=== PATIENT | female | born 1985 | race Caucasian/White ===

== ENCOUNTER 2020-08-19 19:40 | Inpatient (IN) | payer MEDICAID ==
[~2020-08-19] VITALS: Ht 160 cm; Wt 135.7 kg
[~2020-08-19 19:40] MED LIST: GUAI1TAB PO
[2020-08-19] MEDS ORDERED: SODIUM CHLORIDE FLUSH 10ML SYR IVF ONE (20:00)
[2020-08-19] MEDS ORDERED: methylPREDNISolone SOD SUCC 125 MG/2 ML IV ONE (20:00)
[2020-08-19] MEDS ORDERED: ALBUTEROL/IPRATROPIUM 2.5MG/0.5MG, 3 ML ONE ×2 (20:08→21:11)
[2020-08-19] MEDS ORDERED: methylPREDNISolone SOD SUCC 125 MG/2 ML ONE (20:10)
[2020-08-19] MEDS: ALBUTEROL/IPRATROPIUM 2.5MG/0.5MG, 3 ML NPPB SCH ×2 (20:27→21:12)
--- NOTE | 2020-08-19 20:33 | NUR ---
patient resting in bed, SOB with use of accessory muscles. call hayes in reach. safety maintained. nebulizer given. lab at bedside and IV started by this RN and additional labs obtained. patient aware of plan. solumedrol administered. will continue to monitor.
[2020-08-19 20:39] LABS: BASOPHILS % (AUTO) 1 % (0-1); EOSINOPHILS % (AUTO) 6 % (1-7); LYMPHOCYTES % (AUTO) 10 % (22-44); MEAN CORPUSCULAR HEMOGLOBIN 30.2 pg (27.0-34.8); MEAN CORPUSCULAR HGB CONC 33.9 g/dL (32.4-35.8); MEAN PLATELET VOLUME 8.8 fL (7.4-10.4); MONOCYTES % (AUTO) 5 % (2-9); NEUTROPHILS % (AUTO) 79 % (42-75); PLATELET COUNT 301 x10^3/uL (130-400); RED BLOOD COUNT 4.97 x10^6/uL (3.82-5.3); RED CELL DISTRIBUTION WIDTH 13.8 % (9.6-15.2)
[2020-08-19 20:43] LABS: MD NO
[2020-08-19 20:48] LABS: ALBUMIN 4.1 g/dL (3.4-5.0); ANION GAP 7 mmol/L (5-15); CALCIUM 8.9 mg/dL (8.5-10.1); CHLORIDE 104 mmol/L (98-107); CREATININE 0.78 mg/dL (0.55-1.02)
[2020-08-19 20:53] LABS: TROPONIN I < 0.015 ng/mL (0.000-0.045)
--- NOTE | 2020-08-19 21:12 | NUR ---
patient remains wheezy throughout all lung bases with decreased accessory effort than on arrival to ER. 2nd duoneb administered
[2020-08-19] MEDS ORDERED: OMNIPAQUE 350 MG/ML, 75ML BOTTLE ONE (21:44)
--- NOTE | 2020-08-19 21:45 | NUR ---
patient going to CT
[2020-08-19] MEDS ORDERED: CEFTRIAXONE PMX 1GM/50ML 50 ML IVPB ONE (22:30)
[2020-08-19] MEDS ORDERED: AZITHROMYCIN 500 MG in SODIUM CHLORIDE 0.9% 250 ML IVPB ONE (22:30)
--- NOTE | 2020-08-19 22:50 | NUR ---
patient resting in bed in NAD. safety maintained. will continue to monitor. safety maintained. remains on 2L via NC
[2020-08-19] MEDS ORDERED: POLYETHYLENE GLYCOL 17 GM PACKET PO PRN (23:00)
[2020-08-19] MEDS ORDERED: BISACODYL 10 MG SUPP PR PRN (23:00)
[2020-08-19] MEDS ORDERED: ONDANSETRON ODT 4 MG PO PRN (23:00)
[2020-08-19] MEDS: CEFTRIAXONE PMX 1GM/50ML 50 ML IV SCH (23:00)
[2020-08-19] MEDS ORDERED: SODIUM CHLORIDE FLUSH 10ML SYR IVF PRN (23:00)
[2020-08-19] MEDS ORDERED: CEFTRIAXONE PMX 1GM/50ML 50 ML ONE (23:07)
[2020-08-19] MEDS ORDERED: ASCORBIC ACID 500 MG TABLET ONE (23:07)
[2020-08-19] MEDS ORDERED: HEPARIN 5,000 UNITS/ML, 1ML ONE (23:07)
[2020-08-19] MEDS: SODIUM CHLORIDE 0.9% 1,000 ML IV SCH ×2 (23:15→23:26)
[2020-08-19] MEDS: HEPARIN 5,000 UNITS/ML, 1ML SQ SCH (23:21)
[2020-08-19] MEDS: ASCORBIC ACID 500 MG TABLET PO SCH (23:22)
--- NOTE | 2020-08-19 23:33 | NUR ---
tila swabbed and walked to lab by this RN Addendum: 08/19/20 at 2336 by COURTNEY PAPR and appropriate PPE worn
[2020-08-19 23:39] LABS: D-DIMER 0.24 ug/mlFEU (0.00-0.52)
--- NOTE | 2020-08-19 23:41 | NUR ---
report given to Tasha PETTY
[2020-08-19 23:54] VITALS: BP 158/105
[2020-08-20 00:23] VITALS: BP 146/97
[2020-08-20] MEDS ORDERED: hydrALAzine 20 MG/ML, 1ML IV PRN (00:30)
[2020-08-20] MEDS: AZITHROMYCIN 500 MG in SODIUM CHLORIDE 0.9% 250 ML IV SCH (00:51)
[2020-08-20 02:36] VITALS: BP 163/98
[2020-08-20] MEDS: ACETAMINOPHEN 325 MG TABLET PO PRN ×4 (03:12→23:32)
[2020-08-20] MEDS: GUAIFENESIN/DM 200-20MG, 10ML UDC PO PRN ×3 (03:13→23:32)
[2020-08-20] MEDS: ALBUTEROL HFA 90 MCG/SPRAY INH SCH ×6 (03:32→22:59)
[2020-08-20 03:54] LABS: BASOPHILS % (AUTO) 0 % (0-1); EOSINOPHILS % (AUTO) 0 % (1-7); LYMPHOCYTES % (AUTO) 4 % (22-44); MEAN CORPUSCULAR HEMOGLOBIN 30.1 pg (27.0-34.8); MEAN CORPUSCULAR HGB CONC 33.7 g/dL (32.4-35.8); MEAN PLATELET VOLUME 9.2 fL (7.4-10.4); MONOCYTES % (AUTO) 1 % (2-9); NEUTROPHILS % (AUTO) 95 % (42-75); PLATELET COUNT 301 x10^3/uL (130-400); RED BLOOD COUNT 5.08 x10^6/uL (3.82-5.3)
[2020-08-20 03:56] LABS: MD NO
[2020-08-20 04:09] LABS: CHLORIDE 106 mmol/L (98-107)
[2020-08-20 04:13] LABS: ANION GAP 9 mmol/L (5-15); CREATININE 0.79 mg/dL (0.55-1.02)
[2020-08-20 04:26] VITALS: BP 138/81
[2020-08-20 07:47] VITALS: BP 184/81
[2020-08-20] MEDS: DEXAMETHASONE 4 MG/ML, 1ML IVPush SCH (09:26)
[2020-08-20] MEDS: HEPARIN 5,000 UNITS/ML, 1ML SQ SCH ×3 (09:26→23:32)
[2020-08-20] MEDS: CHOLECALCIFEROL 5,000u TAB PO SCH (09:27)
[2020-08-20] MEDS: ASCORBIC ACID 500 MG TABLET PO SCH ×2 (09:27→21:35)
[2020-08-20] MEDS: SENNA/DOCUSATE TABLET PO SCH (09:27)
[2020-08-20] MEDS: ZINC SULFATE 220 MG CAPSULE PO SCH (09:28)
[2020-08-20] MEDS: SODIUM CHLORIDE 0.9% 1,000 ML IV SCH ×2 (11:27→17:59)
[2020-08-20 12:13] VITALS: BP 151/97
[2020-08-20 19:56] VITALS: BP 150/96
[2020-08-20] MEDS: CEFTRIAXONE PMX 1GM/50ML 50 ML IV SCH (23:32)
[2020-08-21 00:49] VITALS: BP 140/86
[2020-08-21] MEDS: AZITHROMYCIN 500 MG in SODIUM CHLORIDE 0.9% 250 ML IV SCH (01:11)
[2020-08-21] MEDS: ALBUTEROL HFA 90 MCG/SPRAY INH SCH ×6 (02:54→23:00)
[2020-08-21 06:04] LABS: BASOPHILS % (AUTO) 0 % (0-1); EOSINOPHILS % (AUTO) 0 % (1-7); LYMPHOCYTES % (AUTO) 16 % (22-44); MEAN CORPUSCULAR HEMOGLOBIN 29.6 pg (27.0-34.8); MEAN CORPUSCULAR HGB CONC 33.2 g/dL (32.4-35.8); MEAN PLATELET VOLUME 9.2 fL (7.4-10.4); MONOCYTES % (AUTO) 6 % (2-9); NEUTROPHILS % (AUTO) 77 % (42-75); PLATELET COUNT 282 x10^3/uL (130-400); RED BLOOD COUNT 4.35 x10^6/uL (3.82-5.3); RED CELL DISTRIBUTION WIDTH 13.9 % (9.6-15.2)
[2020-08-21 06:10] LABS: MD NO
[2020-08-21 06:15] LABS: ALBUMIN 3.3 g/dL (3.4-5.0); ANION GAP 8 mmol/L (5-15); CALCIUM 8.3 mg/dL (8.5-10.1); CHLORIDE 111 mmol/L (98-107)
[2020-08-21 06:17] LABS: CREATININE 0.57 mg/dL (0.55-1.02)
[2020-08-21 06:50] VITALS: BP 101/59
[2020-08-21] MEDS: GUAIFENESIN/DM 200-20MG, 10ML UDC PO PRN (08:47)
[2020-08-21] MEDS: ASCORBIC ACID 500 MG TABLET PO SCH ×2 (08:47→19:46)
[2020-08-21] MEDS: DEXAMETHASONE 4 MG/ML, 1ML IVPush SCH (08:47)
[2020-08-21] MEDS: ACETAMINOPHEN 325 MG TABLET PO PRN (08:47)
[2020-08-21] MEDS: HEPARIN 5,000 UNITS/ML, 1ML SQ SCH ×2 (08:48→16:33)
[2020-08-21] MEDS: CHOLECALCIFEROL 5,000u TAB PO SCH (08:48)
[2020-08-21] MEDS: SODIUM CHLORIDE 0.9% 1,000 ML IV SCH ×2 (08:48→22:49)
[2020-08-21] MEDS: ZINC SULFATE 220 MG CAPSULE PO SCH (08:48)
[2020-08-21] MEDS: SENNA/DOCUSATE TABLET PO SCH (08:53)
[2020-08-21 12:22] VITALS: BP 144/92
[2020-08-21 18:50] VITALS: BP 142/79
[2020-08-21 19:15] VITALS: BP 154/83
[2020-08-21] MEDS: CEFTRIAXONE PMX 1GM/50ML 50 ML IV SCH (22:49)
[2020-08-22] MEDS: AZITHROMYCIN 500 MG in SODIUM CHLORIDE 0.9% 250 ML IV SCH (00:42)
[2020-08-22] MEDS: HEPARIN 5,000 UNITS/ML, 1ML SQ SCH ×2 (00:42→08:01)
[2020-08-22 00:45] VITALS: BP 153/91
[2020-08-22] MEDS: ACETAMINOPHEN 325 MG TABLET PO PRN ×2 (00:53→06:20)
[2020-08-22] MEDS: GUAIFENESIN/DM 200-20MG, 10ML UDC PO PRN (00:53)
[2020-08-22] MEDS: ALBUTEROL HFA 90 MCG/SPRAY INH SCH ×2 (03:27→07:15)
[2020-08-22 07:16] VITALS: BP 170/97
[2020-08-22] MEDS ORDERED: ALBU18HF INH (07:42)
[2020-08-22] MEDS ORDERED: DEXA1TAB5 PO (07:42)
[2020-08-22] MEDS: CHOLECALCIFEROL 5,000u TAB PO SCH (08:01)
[2020-08-22] MEDS: ZINC SULFATE 220 MG CAPSULE PO SCH (08:01)
[2020-08-22] MEDS: SENNA/DOCUSATE TABLET PO SCH (08:01)
[2020-08-22] MEDS: ASCORBIC ACID 500 MG TABLET PO SCH (08:01)
[2020-08-22] MEDS ORDERED: DEXAMETHASONE 1 MG TABLET PO SCH (09:00)
== END 2020-08-22 10:08 | disposition home or self-care (01) | DRG 871 ==
LOC: ED 23:07 → EDIP 23:36 → 3N 23:51
PROVIDERS: ADMIT Internal Medicine; ATTEND Internal Medicine
DX: A41.89 Other specified sepsis (principal); J12.82 Pneumonia due to coronavirus disease 2019; J96.01 Acute respiratory failure with hypoxia; U07.1 COVID-19; Z68.43 Body mass index [BMI] 50.0-59.9, adult; E66.01 Morbid (severe) obesity due to excess calories; Z87.891 Personal history of nicotine dependence; Z90.721 Acquired absence of ovaries, unilateral
CPT/HCPCS: 36415; 71045; 71275; 80048; 80069; 82040; 82728; 83605; 83615; 83735; 83880; 84145; 84484; 85025; 85379; 85384; 87040; 93005; 94640; 96374; 96375; 99285; G0378; J0456; J0696; J1100; J1644; Q9967; J0360; J2930; J7030; J7050; U0003

== ENCOUNTER 2020-08-28 02:29 | Emergency (ER) | payer MEDICAID ==
[~2020-08-28] VITALS: Ht 160 cm; Wt 134.0 kg
[~2020-08-28 02:29] MED LIST changes: +ALBU18HF INH; +DEXA1TAB5 PO
--- NOTE | 2020-08-28 02:41 | NUR ---
CC OF LOW OXYGEN AND HIGH BP AT HOME. PT 95% HERE. PT WAS JUST SEEN HERE FOR COVID PNA AND IS NOW FATIGUED.
--- NOTE | 2020-08-28 03:00 | NUR ---
REPORT GIVEN TO YAEL PETTY
--- NOTE | 2020-08-28 03:01 | NUR ---
bedside report from Payal RN, pt care transferred at this time. pt nad, resting on gurney, appears comfortable, bed in lowest, call light on lap, rails engaged. denny.
[2020-08-28 03:24] LABS: ALBUMIN 3.3 g/dL (3.4-5.0); ANION GAP 9 mmol/L (5-15); CALCIUM 9.6 mg/dL (8.5-10.1); CHLORIDE 104 mmol/L (98-107); CREATININE 1.11 mg/dL (0.55-1.02)
[2020-08-28 03:27] LABS: BASOPHILS % (AUTO) 1 % (0-1); EOSINOPHILS % (AUTO) 7 % (1-7); LYMPHOCYTES % (AUTO) 32 % (22-44); MEAN CORPUSCULAR HEMOGLOBIN 30.6 pg (27.0-34.8); MEAN CORPUSCULAR HGB CONC 34.6 g/dL (32.4-35.8); MONOCYTES % (AUTO) 8 % (2-9); NEUTROPHILS % (AUTO) 52 % (42-75); PLATELET COUNT 362 x10^3/uL (130-400); RED BLOOD COUNT 4.35 x10^6/uL (3.82-5.3); RED CELL DISTRIBUTION WIDTH 13.9 % (9.6-15.2)
[2020-08-28 03:28] LABS: TROPONIN I < 0.015 ng/mL (0.000-0.045)
[2020-08-28 03:29] LABS: MD NO
--- NOTE | 2020-08-28 04:15 | NUR ---
PT RESTING ON [place]ANG, NAD, NO CHANGE IN CONDITION, AZALEA SOLIS AT FOR EVAL AND POC. WCTM.
[2020-08-28 04:18] VITALS: BP 148/90
--- NOTE | 2020-08-28 04:32 | NUR ---
Patient/SPOUSE given discharge instructions and they have confirmed that they understand the instructions. Patient ambulatory with steady gait. NAD, DENIES ADDITIONAL QUESTIONS OR NEEDS AT THIS TIME. NO PERSONAL BELONGINGS LEFT IN ROOM AFTER DC.
== END 2020-08-28 04:32 | disposition home or self-care (01) ==
LOC: ED 03:05
DX: U07.1 COVID-19 (principal); J06.9 Acute upper respiratory infection, unspecified; R07.89 Other chest pain; R53.1 Weakness; J45.909 Unspecified asthma, uncomplicated; Z87.891 Personal history of nicotine dependence
CPT/HCPCS: 36415; 71045; 80048; 82040; 83880; 84484; 85025; 93005; 99285

== ENCOUNTER 2021-03-27 00:31 | Emergency (ER) | payer MEDICAID ==
[~2021-03-27] VITALS: Ht 160 cm; Wt 129.6 kg
[2021-03-27 03:22] VITALS: BP 138/90
== END 2021-03-27 05:50 | disposition home or self-care (01) ==
LOC: ED 01:00
DX: J45.909 Unspecified asthma, uncomplicated (principal); R07.89 Other chest pain; Z87.891 Personal history of nicotine dependence
CPT/HCPCS: 71045; 93005; 99283